=== PATIENT | female | born 1980 | race Caucasian/White ===

== ENCOUNTER → 2017-04-28 10:38 | Outpatient (CLI) | payer BC, SELFPAY ==
[2017-04-28 15:18] LABS: Group B Strep DNA By PCR Negative (Negative); Internal Control PASS; Probe Check PASS; Specimen Processing Control PASS
== END ==
PROVIDERS: Visit Provider Obstetrics & Gynecology
DX: Z36.85 Encounter for antenatal screening for Streptococcus B (principal)
CPT/HCPCS: 87081; 87653

== ENCOUNTER → 2017-05-08 10:58 | Outpatient (CLI) | payer BC, SELFPAY ==
[2017-05-08 11:28] LABS: Prothrombin Time (Protime)PT. 12.7 SECONDS (11.7-14.9)
[2017-05-08 11:29] LABS: Partial Thromboplast Time 26.2 Seconds (24.1-36.2)
[2017-05-08 11:33] LABS: Hematocrit 34.3 % (37-47); Hemoglobin 11.5 g/dl (12.0-15.0); Mean Corp Hgb Conc 33.5 g/gl (32-36); Mean Corpuscular Hgb 29.9 pg (27.0-32.0); Mean Corpuscular Volume 89.3 fL (81-99); Mean Platelet Vol. 10.1 fl (6.2-12.0); Platelet Count 305 K/mm3 (150-450); RBC Distribution Width CV 13.2 % (11.6-14.6); RBC Distribution Width SD 42.6 fl (35.1-43.9); Red Blood Count 3.84 M/mm3 (4.2-5.4); White Blood Count 10.6 K/mm3 (4.4-11.0)
[2017-05-08 11:35] LABS: Scan Indicated on CBC? Y/N NO
[2017-05-08 11:53] LABS: AST(SGOT) 12 U/L (15-37); Alanine Aminotransfer ALT/SGPT 15 U/L (13-56); Creatinine, Serum 0.56 mg/dL (0.55-1.02); EST Glomerular Filtration Rate 130 mL/min (>60); Est Glom Filt Rate - Afr Amer 157 mL/min (>60); Uric Acid 5.3 mg/dL (2.6-6.0)
== END ==
PROVIDERS: Visit Provider Obstetrics & Gynecology
DX: O13.1 Gestational [pregnancy-induced] hypertension without significant proteinuria, first trimester (principal); Z3A.00 Weeks of gestation of pregnancy not specified
CPT/HCPCS: 36415; 82565; 84450; 84460; 84550; 85027; 85610; 85730

== ENCOUNTER → 2017-05-09 12:59 | Outpatient (CLI) | payer BC, SELFPAY ==
[2017-05-09 14:11] LABS: 24HR. UA Prot. Total Volume 900 mL; Urine Protein (24 Hour) 32.3 mg/dL (<11.9)
[2017-05-09 14:12] LABS: 24 Hour Urine Protein 290.7 mg/24HR (<150 MG/24HR)
== END ==
PROVIDERS: Visit Provider Obstetrics & Gynecology
DX: O13.1 Gestational [pregnancy-induced] hypertension without significant proteinuria, first trimester (principal); Z3A.00 Weeks of gestation of pregnancy not specified
CPT/HCPCS: 84156

== ENCOUNTER 2017-05-12 06:58 | Inpatient (IN) | payer BC, SELFPAY ==
[2017-05-12 07:12] VITALS: BMI 47.9
[2017-05-12] MEDS: Lactated Ringers 1,000 ML 50 ML IV (07:30)
[2017-05-12] MEDS: miSOPROStol 25 MCG TABLET VAGINAL ×5 (08:00→23:52)
[2017-05-12 08:03] LABS: Hematocrit 33.2 % (37-47); Mean Corp Hgb Conc 33.1 g/gl (32-36); Mean Corpuscular Hgb 29.4 pg (27.0-32.0); Mean Corpuscular Volume 88.8 fL (81-99); Mean Platelet Vol. 10.1 fl (6.2-12.0); Platelet Count 273 K/mm3 (150-450); RBC Distribution Width CV 13.4 % (11.6-14.6); RBC Distribution Width SD 43.4 fl (35.1-43.9); Red Blood Count 3.74 M/mm3 (4.2-5.4); Scan Indicated on CBC? Y/N NO; White Blood Count 12.1 K/mm3 (4.4-11.0)
[2017-05-12] MEDS: Insulin NPH Human 100 UNITS/ML PEN 40 UNITS SC (09:14)
[2017-05-12 11:37] LABS: Bedside Glucose 85 mg/dL (70-110)
[2017-05-12 11:46] LABS: Bedside Glucose 158 mg/dL (70-110)
[2017-05-12 16:31] LABS: Bedside Glucose 119 mg/dL (70-110)
--- NOTE | 2017-05-12 17:07 | PCM.PN.OB ---
Subjective: Admitted for induction of labor secondary to GDMA2. Comfortable Objective: Afeb VSS. FHR tracing cat 1 - Physical Exam General: Alert, Oriented x3, Cooperative, No apparent distress Lungs: Clear to auscultation, Normal air movement Cardiovascular: Regular rate, Regular Rhythm Abdomen: Soft, Non Tender, Gravid, Appropriate for Gestational Age Extremities: Edema Skin: No rashes Neurological: Neuro grossly intact Psych/Mental Status: Normal Affect Comment: CE closed thick/high Weight: 271 lb Body Mass Index (BMI) 47.9 Laboratory Tests Past 24 Hrs 05/12/17 05/12/17 07:30 07:30 WBC 12.1 H RBC 3.74 L Hgb 11.0 L Hct 33.2 L MCV 88.8 MCH 29.4 MCHC 33.1 RDW 13.4 RDW Differential 43.4 Plt Count 273 MPV 10.1 Blood Type O POSITIVE Antibody Screen NEGATIVE POC Glucose 05/12/17 05/12/17 05/12/17 16:22 11:34 08:29 POC Glucose 119 H 158 H 85 Assessment/Plan Has had two doses of cytotec at this point. No change in cervical exam. Will continue cytotec q 4 hours for up to 6 doses.
[2017-05-12] MEDS: 0.9% Saline Lock 10 ML Syringe IV ×2 (19:04→22:47)
[2017-05-12 20:51] LABS: Bedside Glucose 120 mg/dL (70-110)
[2017-05-12] MEDS: Acetaminophen 325 MG Tablet PO (20:55)
[2017-05-12] MEDS: Insulin NPH Human 100 UNITS/ML PEN 26 UNITS SC (22:38)
[2017-05-12 22:40] LABS: Bedside Glucose 96 mg/dL (70-110)
[2017-05-12] MEDS: Nalbuphine 10 MG/ML Ampul IV (22:46)
[2017-05-13] VITALS (24 sets, daily range): BP systolic 95–133; BP diastolic 56–76; PULSE 71–102; RESP 16–20; TEMP 36.2–36.9; O2SAT 94–99
[2017-05-13] MEDS: 0.9% Saline Lock 10 ML Syringe IV (02:07)
[2017-05-13] MEDS: Nalbuphine 10 MG/ML Ampul IV (02:07)
[2017-05-13 02:21] LABS: Bedside Glucose 83 mg/dL (70-110)
[2017-05-13] MEDS: miSOPROStol 25 MCG TABLET VAGINAL (03:54)
[2017-05-13] MEDS: Ondansetron 4 MG/2 ML Vial IV (04:40)
[2017-05-13 05:56] LABS: Bedside Glucose 80 mg/dL (70-110)
[2017-05-13] MEDS: Lactated Ringers 1,000 ML 50 ML IV (07:16)
[2017-05-13] MEDS: Oxytocin 30 units/NS 500 ml 30 UNITS/500 ML IV.SOLN 167 UNITS IV (08:30)
--- NOTE | 2017-05-13 09:04 | PCM.OB.CSR ---
- Problem List (1) Arrest of dilation, delivered, current hospitalization Status: Chronic (2) Gestational diabetes mellitus (GDM) affecting first Status: Chronic Delivery Classification: NOE Final GARTH: 05/20/17 Final GARTH Source: US <20 weeks Gestational age: 39 Weeks and 0 Days Indications for : Failed Induction Description of Procedure: Patient admitted per [facility] recommendation for induction of labor secondary to GDMA2 with elevated blood pressures. Cervix unfavorable. Given 6 doses of cytotec with no change in cervical exam. Primary C/S was performed without complication with delivery of a live male weighing 7lb4oz. head noted to be very high in the pelvis. Apgars were 8/9. Uterus, ovaries, and fallopian tubes normal. Amniotic fluid clear. Normal appearing placenta. Amniotic Membrane Rupture Type: Spontaneous Amniotic Fluid Description: Clear Placenta Disposition: [facility] Specimen(s) sent to pathology: cord blood Drain: Buckner to straight drain Fluids Replaced: 1500cc Cord Entanglement: None Cord Vessel Description: 3 Vessels Esitmated Blood Loss (ml): 500 Gender: Male (1 minute): 8 (5 minute): 9 Delayed cord clamping: Yes Pre-op Antibiotic Given: Ancef 2 grams IV x1 Pt instructed on risks of surgery: Bleeding, Infection, Injury to surrounding structure(s) including bowel and bladder Complications: None - Admit VTE Documentation VTE Present on Admission: No VTE Mechan Device Prophylaxis: SCD's VTE Pharm Prophylaxis ordered?: No
--- NOTE | 2017-05-13 09:09 | OP.PCM_ITS ---
- Problem List (1) Arrest of dilation, delivered, current hospitalization Status: Chronic (2) Gestational diabetes mellitus (GDM) affecting first Status: Chronic Delivery Classification: NOE Final GARTH: 05/20/17 Final GARTH Source: US <20 weeks Gestational age: 39 Weeks and 0 Days Indications for : Failed Induction Description of Procedure: Patient admitted per [facility] recommendation for induction of labor secondary to GDMA2 with elevated blood pressures. Cervix unfavorable. Given 6 doses of cytotec with no change in cervical exam. Primary C/S was performed without complication with delivery of a live male weighing 7lb4oz. head noted to be very high in the pelvis. Apgars were 8/9. Uterus, ovaries, and fallopian tubes normal. Amniotic fluid clear. Normal appearing placenta. Amniotic Membrane Rupture Type: Spontaneous Amniotic Fluid Description: Clear Placenta Disposition: [facility] Specimen(s) sent to pathology: cord blood Drain: Buckner to straight drain Fluids Replaced: 1500cc Cord Entanglement: None Cord Vessel Description: 3 Vessels Esitmated Blood Loss (ml): 500 Gender: Male (1 minute): 8 (5 minute): 9 Delayed cord clamping: Yes Pre-op Antibiotic Given: Ancef 2 grams IV x1 Pt instructed on risks of surgery: Bleeding, Infection, Injury to surrounding structure(s) including bowel and bladder Complications: None - Admit VTE Documentation VTE Present on Admission: No VTE Mechan Device Prophylaxis: SCD's VTE Pharm Prophylaxis ordered?: No
--- NOTE | 2017-05-13 09:10 | DCINST_ITS ---
Discharge Diet: No Restrictions Discharge Activity: Return to Normal Activity, May Not Drive, May not drive while taking narcotic pain medications., May Shower Return to work on:: 07/10/17 May shower in (days): 0 May resume sexual activity in: 4-6 weeks Call your doctor if your incision/area has: Sudden Increased Bleeding, Increased Pain/ Swelling, Increased Redness, Foul Smelling Discharge, Swelling at the incision site Call your doctor if you observe: Fever of 101 or Higher, Inability to urinate, Inability to have a bowel movement, Using more than one pad per hour, Shortness of breath, Chest pain, Calf discomfort, Uncontrolled pain Remove Dressing in (days):: 2 Cleanse incision/area with: Soap & Water Additional Instructions: If you experience any of the following, contact your healthcare provider. * Bleeding that soaks a pad every hour for 2 hours * Fever 100.4 or higher * Unrelieved incision or abdominal pain * Swelling, redness, discharge or bleeding from your incision or episiotomy site * Your incision begins to separate * Problems urinating (including inability to urinate or burning while urinating) . * Visual changes * Severe headache * Flu-like symptoms * Pain or redness in one of both of your breasts * Pain, warmth, tenderness or swelling in your legs, especially the calf area * Frequent nausea and vomiting * Symptoms of depression or anxiety If you experience any of the following, call 911 or go to the nearest Emergency Room. * Chest pain * Problems breathing * Seizure activity * Partial or complete paralysis of a body part, slurred speech, weakness or drooping of the face, or a sudden inability to walk or hold your balance Allergies/Adverse Reactions: Allergies folic acid Allergy (Verified 05/12/17 07:54) Hives bupropion [From Wellbutrin] Adverse Reaction (Verified 05/12/17 07:54) Other hydrocodone [From Vicodin] Adverse Reaction (Verified 05/12/17 07:54) Nausea Medications to take at Discharge DiphenhydrAMINE [Benadryl] 05/12/17 Diphenhydramine HCl [Unisom] 05/12/17 Humalog BID 05/12/17 Insulin Detemir BID 05/12/17 Insulin NPH Human [Humulin N Pen] 05/12/17 Multi Tablet 05/12/17 Ranitidine [Zantac] 05/12/17 Tylenol 05/12/17 Ibuprofen [Motrin] 800 mg PO TID PRN PRN #30 tab 05/13/17 Oxycodone [Oxyir] 5 mg PO Q4H PRN PRN 7 Days #28 tab 05/13/17 The following prescriptions were given: Oxycodone [Oxyir] 5 mg PO Q4H PRN PRN 7 Days #28 tab PRN Reason: Pain Ibuprofen [Motrin] 800 mg PO TID PRN PRN #30 tab PRN Reason: pain or cramping Follow-Up: Call to make an appointment with your doctor for an incision check in 1-2 weeks. You will also need a 6 week post- follow up appointment. Please Follow Up With: David Hooper MD When: one week Primary Care Physician: Care Physician,No Primary [Primary Care Provider] - Proposed Discharge Date: 05/22/17
[2017-05-13 11:36] LABS: Bedside Glucose 102 mg/dL (70-110)
[2017-05-13] MEDS: Lactated Ringers 1,000 ML 100 ML IV ×2 (14:00→22:52)
[2017-05-13] MEDS: Ketorolac 30 MG/ML Syringe IV ×2 (14:20→20:16)
--- NOTE | 2017-05-13 15:05 | PCM.OPRPT ---
Problem List (1) Arrest of dilation, delivered, current hospitalization Status: Chronic (2) Gestational diabetes mellitus (GDM) affecting first Status: Chronic Report of Operation Date of Procedure: 05/13/17 Pre-Operative Diagnosis: Failed induction, GDMA2, Hypertension Post-Operative Diagnosis: Same Surgery/Procedure Performed:: Primary Low Transverse Section Description of Surgical Findings:: Normal appearing uterus, ovaries, and fallopian tubes. Live male in vertex presentation. Head not engaged. weight [id number] Apgars 8/9 Amniotic fluid clear. Placenta grossly normal. service unit operator oil well: Shawn Hood Type of Anesthesia:: Spinal Anesthesiologist: Maico Rodriguez Specimen's removed: cord blood Drains: palomino Estimated Blood Loss (mL): 500 Fluids Replaced: 1500cc Description of Procedure: Indications, risks, and postoperative expectations discussed with Alesia prior to the procedure. Indication was failed induction of labor with no cervical change despite 3 doses of cytotec given vaginally over 24 hours. Cervix was not dilated to point that a palomino bulb cervical ripening could have been done. She was taken to the OR with IV running. She was given two grams of Ancef intravenously for surgical prophylaxis. Spinal anesthesia was then introduced without complication. She was then preeped and draped in the supine position with a leftward tilt. A palomino catheter was placed. Anesthesia was checked and found to be adequate. A Pfannensteil incision was made approximately 2 cm above the symphysis pubis. The underlying subcutaneous tissue was dissected down to the level of fascia using blunt and sharp dissection. The fascia was then incised in the midline and this incision was extended bilaterally with the Raphael scissors. The upper portion of the fascial defect was then grasped with two Curly clamps, elevated and the underlying rectus muscles were dissected off with blunt and sharp dissection. In a similar fashion the fascia was dissected off the lower rectus muscles. The rectus muscles were then in the midline. The peritoneum was identified and entered bluntly. The peritoneal defect was then extended using blunt retraction. A bladder blade was placed. The vesicouterine peritoneum was then entered and a bladder flap was created using blunt and sharp dissection. The bladder blade was then replaced. The lower uterine segment was then incised. Once the uterus was entered the uterine defect was extended using blunt lateral and superior traction. The membranes were ruptured with clear fluid noted. The baby's head was then delivered atraumatically followed by the body. The mouth and nares were then suctioned with a bulb suction. Delayed cord clamping was employed. The cord was then clamped and cut. The baby was then handed off to the waiting nursing staff for evaluation. The placenta was then delivered manually. The uterus was exteriorized and cleared of all clot and membranes. The uterine defect was then closed in two layers with #1 Vicryl in two layers. Hemostasis was excellent. The posterior cul de sac and gutters were cleared of all clot and fluid. The uterus was then returned to the abdomen. The uterine incision was reinspected and found to be hemostatic. The peritoneum was closed with 2-0 Vicryl. The rectus muscles were reapproximated using interrupted sutures of 0-Vicryl. The fascia was closed with a running stitch of #1 Stratofix suture. The subcutaneous tissue was closed with 2-0 Vicryl. The skin was closed in a subcuticular fashion with 4-0 Monocryl. Sponge, lap, and needle counts were correct. Alesia was taken to the recovery room in stable condition. - Complications none - Admit VTE Documentation VTE Present on Admission: No VTE Mechan Device Prophylaxis: SCD's VTE Pharm Prophylaxis ordered?: No
--- NOTE | 2017-05-13 15:08 | OP.PCM_ITS ---
Problem List (1) Arrest of dilation, delivered, current hospitalization Status: Chronic (2) Gestational diabetes mellitus (GDM) affecting first Status: Chronic Report of Operation Date of Procedure: 05/13/17 Pre-Operative Diagnosis: Failed induction, GDMA2, Hypertension Post-Operative Diagnosis: Same Surgery/Procedure Performed:: Primary Low Transverse Section Description of Surgical Findings:: Normal appearing uterus, ovaries, and fallopian tubes. Live male in vertex presentation. Head not engaged. weight [id number] Apgars 8/9 Amniotic fluid clear. Placenta grossly normal. director client services: Shawn Hood Type of Anesthesia:: Spinal Anesthesiologist: Maico Rodriguez Specimen's removed: cord blood Drains: palomino Estimated Blood Loss (mL): 500 Fluids Replaced: 1500cc Description of Procedure: Indications, risks, and postoperative expectations discussed with Alesia prior to the procedure. Indication was failed induction of labor with no cervical change despite 3 doses of cytotec given vaginally over 24 hours. Cervix was not dilated to point that a palomino bulb cervical ripening could have been done. She was taken to the OR with IV running. She was given two grams of Ancef intravenously for surgical prophylaxis. Spinal anesthesia was then introduced without complication. She was then preeped and draped in the supine position with a leftward tilt. A palomino catheter was placed. Anesthesia was checked and found to be adequate. A Pfannensteil incision was made approximately 2 cm above the symphysis pubis. The underlying subcutaneous tissue was dissected down to the level of fascia using blunt and sharp dissection. The fascia was then incised in the midline and this incision was extended bilaterally with the Raphael scissors. The upper portion of the fascial defect was then grasped with two Curly clamps, elevated and the underlying rectus muscles were dissected off with blunt and sharp dissection. In a similar fashion the fascia was dissected off the lower rectus muscles. The rectus muscles were then in the midline. The peritoneum was identified and entered bluntly. The peritoneal defect was then extended using blunt retraction. A bladder blade was placed. The vesicouterine peritoneum was then entered and a bladder flap was created using blunt and sharp dissection. The bladder blade was then replaced. The lower uterine segment was then incised. Once the uterus was entered the uterine defect was extended using blunt lateral and superior traction. The membranes were ruptured with clear fluid noted. The baby's head was then delivered atraumatically followed by the body. The mouth and nares were then suctioned with a bulb suction. Delayed cord clamping was employed. The cord was then clamped and cut. The baby was then handed off to the waiting nursing staff for evaluation. The placenta was then delivered manually. The uterus was exteriorized and cleared of all clot and membranes. The uterine defect was then closed in two layers with #1 Vicryl in two layers. Hemostasis was excellent. The posterior cul de sac and gutters were cleared of all clot and fluid. The uterus was then returned to the abdomen. The uterine incision was reinspected and found to be hemostatic. The peritoneum was closed with 2-0 Vicryl. The rectus muscles were reapproximated using interrupted sutures of 0- Vicryl. The fascia was closed with a running stitch of #1 Stratofix suture. The subcutaneous tissue was closed with 2-0 Vicryl. The skin was closed in a subcuticular fashion with 4-0 Monocryl. Sponge, lap, and needle counts were correct. Alesia was taken to the recovery room in stable condition. - Complications none - Admit VTE Documentation VTE Present on Admission: No VTE Mechan Device Prophylaxis: SCD's VTE Pharm Prophylaxis ordered?: No
[2017-05-13] MEDS: Cefazolin 1 GM/50 ML BAG IV ×2 (16:13→23:30)
[2017-05-13] MEDS: Acetaminophen 500 MG Tablet 1000 MG PO (22:52)
[2017-05-14] VITALS (7 sets, daily range): BP systolic 125–144; BP diastolic 70–83; PULSE 72–104; RESP 16–18; TEMP 36.3–37.3; O2SAT 95–98
[2017-05-14] MEDS: Ketorolac 30 MG/ML Syringe IV ×2 (02:12→08:24)
[2017-05-14 05:21] LABS: Bedside Glucose 106 mg/dL (70-110)
[2017-05-14 05:26] LABS: Hematocrit 31.6 % (37-47); Hemoglobin 10.3 g/dl (12.0-15.0); Mean Corp Hgb Conc 32.6 g/gl (32-36); Mean Corpuscular Hgb 29.3 pg (27.0-32.0); Mean Platelet Vol. 9.5 fl (6.2-12.0); Platelet Count 200 K/mm3 (150-450); RBC Distribution Width CV 13.8 % (11.6-14.6); RBC Distribution Width SD 45.4 fl (35.1-43.9); Red Blood Count 3.51 M/mm3 (4.2-5.4); White Blood Count 10.5 K/mm3 (4.4-11.0)
[2017-05-14 05:29] LABS: Scan Indicated on CBC? Y/N NO
[2017-05-14] MEDS: 0.9% Saline Lock 10 ML Syringe IV (08:24)
--- NOTE | 2017-05-14 09:48 | PCM.PN.OB ---
Subjective: Sitting in chair. Pain reasonably controlled. Buckner removed. Tolerating PO. Objective: Afeb VSS Hgb stable. Urine output adequate, - Physical Exam General: Alert, Oriented x3, Cooperative, No apparent distress Lungs: Clear to auscultation, Normal air movement Cardiovascular: Regular rate, Regular Rhythm Abdomen: Soft, Non Tender, Non-Distended, - - Incision dressing dry. No erythema. Extremities: No edema Skin: No rashes Neurological: Neuro grossly intact Psych/Mental Status: Normal Affect Comment: Lochia scant. Vital Signs Temp Pulse Resp BP Pulse Ox 97.8 F 89 18 138/70 H 98 05/14/17 05:00 05/14/17 05:00 05/14/17 05:00 05/14/17 05:00 05/14/17 07:00 Oxygen Delivery Method Room Air Weight: 271 lb Body Mass Index (BMI) 47.9 Intake and Output for Last 24 Hours 05/12/17 05/13/17 05/14/17 23:59 23:59 23:59 Intake Total 1065 / 1065 1245 / 1245 Output Total 1050 / 1050 900 / 900 Balance 345 / 345 Laboratory Tests Past 24 Hrs 05/14/17 05:17 WBC 10.5 RBC 3.51 L Hgb 10.3 L Hct 31.6 L MCV 90.0 MCH 29.3 MCHC 32.6 RDW 13.8 RDW Differential 45.4 H Plt Count 200 MPV 9.5 POC Glucose 05/14/17 05/13/17 05:16 11:26 POC Glucose 106 102 Assessment/Plan Doing well on POD#1. Continue routine PO care.
[2017-05-14] MEDS: oxyCODONE 5 MG Tablet PO ×3 (10:48→22:38)
[2017-05-14] MEDS: Senna/Docusate Sodium 1 Tablet PO ×2 (10:49→22:37)
[2017-05-14] MEDS: Ibuprofen 600 MG Tablet PO ×2 (13:08→18:43)
[2017-05-15 01:00] VITALS: BP 144/87; PULSE 117; RESP 16; TEMP 36.4
[2017-05-15] MEDS: oxyCODONE 5 MG Tablet PO ×2 (05:59→14:54)
--- NOTE | 2017-05-15 07:40 | PCM.PN.OB ---
Subjective: Some soreness today. Passed one clot overnight. Breast feeding. Objective: Afeb VSS - Physical Exam General: Alert, Oriented x3, Cooperative, No apparent distress Lungs: Clear to auscultation, Normal air movement Cardiovascular: Regular rate, Regular Rhythm Abdomen: Soft, Non Tender, Non-Distended, - - Incision dressing dry no erythema Extremities: No edema Skin: No rashes Neurological: Neuro grossly intact Psych/Mental Status: Normal Affect Comment: Lochia light Vital Signs Temp Pulse Resp BP Pulse Ox 97.6 F L 117 H 16 144/87 H 96 05/15/17 01:00 05/15/17 01:00 05/15/17 01:00 05/15/17 01:00 05/14/17 08:00 Oxygen Delivery Method Room Air Weight: 271 lb Body Mass Index (BMI) 47.9 Intake and Output for Last 24 Hours 05/13/17 05/14/17 05/15/17 23:59 23:59 23:59 Intake Total 1065 / 1065 1245 / 1245 Output Total 1050 / 1050 1999 300 / 300 Balance 15 / -755 / -755 -300 / -300 Assessment/Plan Doing well except for incisional soreness today. Continue breast feeding. Continue routine PO care. May discharge later this evening or hold discharge until tomorrow. Home going instructions and warnigns given.
[2017-05-15 07:48] VITALS: BP 128/60; PULSE 100; RESP 14; TEMP 36.9
[2017-05-15] MEDS: Ibuprofen 600 MG Tablet PO (10:07)
[2017-05-15 11:27] VITALS: BP 119/65; PULSE 108; RESP 14; TEMP 36.8
--- NOTE | 2017-05-15 13:00 | NURSING ---
This nursing attendant reviewed the charting completed by Joshua Christian, student nurse.
[2017-05-15 14:26] VITALS: BP 116/60; PULSE 100; RESP 16; TEMP 36.8
--- NOTE | 2017-05-15 16:05 | CASEMGMT ---
Social Work Referral Date:05/15/17 Date of Assessment:05/15/17 Reason for Consult:Community Resources Informant: Mother of baby (MOB) and chart. Personal Status Mentation: (A&Ox3?): MOB oriented x3. Present during assessment: MOB and infant Hx : 1 Hx Para: 0 Infant Gender: Male Name: Ramon Bhatt (1min): 8 (5min): 9 Care: Adequate Alleged father: Laci Bhatt Alleged father involved: father of baby (FOB) recently moved to [place] until summer due to a job. Length of Relationship with alleged father of baby: 1.5 years. Number of Children in the home: This is first for MOB and FOB. Custody Comments: MOB plans to discharge home with . Living Arrangements: MOB and FOB have own private apartment where infant plans to discharge home to. Education: Collage degree. 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 MOB reporting that FOB is a Pick Pulling Machine Operator and is trying to grow profession and the job in [place] would help with this. MOB appearing to be a peace with the fact that FOB would not be returning until summer time. Supports: MOB reporting to have a positive support system that is able to be present with MOB. MOB reporting that maternal grandmother and MOB's sisters are able to assist. Substance Abuse Hx and Current Pattern of Use Comment: MOB denies any Alcohol use during . MOB denies any usage of Methamphetamine, Cocaine, Marijuana, Prescriptions Drugs, or Heroin. MOB reporting to have smoked tobacco prior to discovering but to have not smoked since discovering . MOB with no tox screen orders during . No tox screens order for . MOB educated and aware of risk of second hand smoke and the value of not returning back to smoking tobacco, MOB voicing understanding. This socia worker also recognizing with MOB and smoking tobacco was how MOB relieved stress. MOB reporting to be able to look into other healthy stress relief options. MOB reporting that is motivation for MOB to not return go smoking. This social science research assistant presenting stress relief options such as reading, music, exercise, and journaling. Support given. Mental Health Hx and Current Status Comment: MOB denies any history of depression or anxiety. MOB reporting to have no history of mental health. Items/Skills List for Infants Care Supplies: MOB reporting to have a crib, car seat, clothing, bottles, breast pump, diapers, wipes. Bonding With Infant: MOB reporting to be bonding with . MOB reporting that was planned. Observed Maternal/Paternal Child interaction: MOB holding during interview. MOB beginning to breastfeed infant during assessment. MOB supporting infants body and head appropriately. MOB soothing as well as finger tipping often during assessment. Emotional Assessment: MOB presenting with a normal affect as could be seen through smiling as this social science research assistant and making eye contact with this social science research assistant often during assessment. MOB engaged in assessment as seen through eye contact and initiating questions. Resources JFS: Not involved at this time. WIC: MOB does not qualify People to People: No Community Action: MOB planning to contact to look into possible options for day care. - Information given. Help Me Grow: MOB not interested in referral at this time - information given. Children Protective Services Hx: None Transportation: MOB denies any concerns. Comments: MOB given information as well as educated on [facility] resources, Help Me Grow, Safe sleeping, depression. Intervention: None at this time. Plan: to discharge home with MOB and FOB to join in the summer and on return visits home. Florencia VAZQUEZ, BOILER WELDER
--- NOTE | 2017-05-15 21:09 | PCM.DC.SUM ---
Discharge Date and Diagnosis Date of Admission: 05/12/17 Date of Discharge: 05/15/17 - Secondary Discharge Diagnosis Chronic Problems Arrest of dilation, delivered, current hospitalization (Chronic) Gestational diabetes mellitus (GDM) affecting first (Chronic) Hospital Course and Treatment Consultations 05/12/17 07:13 Consult: Anesthesia Routine Comment: Reason For Exam: labor Operations: - - section Summary of Care Provided: The patient is a 37 year old F admitted at 38 6/7 weeks gestational age with with gestational diabetes and elevated blood pressures. She had a failed induction and underwent a primary low transverse section at 39 weeks gestational age. Her post-operative course was unremarkable and she was discharged to home on post-op day #2. Discharge Diet: No Restrictions Discharge Activity: Return to Normal Activity, May Not Drive, May not drive while taking narcotic pain medications., May Shower Return to work on:: 07/10/17 May shower in (days): 0 May resume sexual activity in: 4-6 weeks Call your doctor if your incision/area has: Sudden Increased Bleeding, Increased Pain/ Swelling, Increased Redness, Foul Smelling Discharge, Swelling at the incision site Call your doctor if you observe: Fever of 101 or Higher, Inability to urinate, Inability to have a bowel movement, Using more than one pad per hour, Shortness of breath, Chest pain, Calf discomfort, Uncontrolled pain Remove Dressing in (days):: 2 Cleanse incision/area with: Soap & Water Home Medications: Medications to take at Discharge DiphenhydrAMINE [Benadryl] 05/12/17 Diphenhydramine HCl [Unisom] 05/12/17 Humalog BID 05/12/17 Insulin Detemir BID 05/12/17 Insulin NPH Human [Humulin N Pen] 05/12/17 Multi Tablet 05/12/17 Ranitidine [Zantac] 05/12/17 Tylenol 05/12/17 Ibuprofen [Motrin] 800 mg PO TID PRN PRN #30 tab 05/13/17 Oxycodone [Oxyir] 5 mg PO Q4H PRN PRN 7 Days #28 tab 05/13/17 Following Prescrptions Were Given to Patient: Oxycodone [Oxyir] 5 mg PO Q4H PRN PRN 7 Days #28 tab PRN Reason: Pain Ibuprofen [Motrin] 800 mg PO TID PRN PRN #30 tab PRN Reason: pain or cramping Primary Care Physician: Care Physician,No Primary [Primary Care Provider] - Please Follow Up With: David Hooper MD When: one week Meaningful Use Info Meaningful Use Diagnoses (Choose all that apply): None applicable
--- NOTE | 2017-05-15 21:33 | NURSING ---
Late entry: Verbal and written discharge instructions for infant given to mother. This RN and Parul RN spoke with mother regarding 's weight loss and that Dr. Chavez would like patient to give formula after putting infant to breast, mother verbalized understanding. Also encouraged that patient pump after each feed and that Dr. Chavez would like infant to be seen tomorrow or instead of Monday appointment, patient verbalizes understanding. This RN encouraged mother to make a consult appointment, but mother declined and states she will call back in if she decides that is what she wants to do. Mother and infant discharged at 2004, in carseat on mother's lap and both discharged from via wheelchair.
== END 2017-05-15 20:05 | disposition home or self-care (01) | DRG 766 ==
PROVIDERS: Obstetrics & Gynecology; Admitting Provider Obstetrics & Gynecology; Visit Provider Obstetrics & Gynecology
DX: O24.424 Gestational diabetes mellitus in childbirth, insulin controlled (principal); O09.513 Supervision of elderly primigravida, third trimester; O13.4 Gestational [pregnancy-induced] hypertension without significant proteinuria, complicating childbirth; O61.0 Failed medical induction of labor; Z3A.39 39 weeks gestation of pregnancy; Z37.0 Single live birth; Z87.891 Personal history of nicotine dependence
CPT/HCPCS: 59050; 82962; 85027; 86850; 86900; 99218; J7120; A4216; G0378; J2405

== ENCOUNTER 2017-05-18 13:00 | Outpatient (CLI) | payer BC, SELFPAY | END 2017-05-18 14:15 | disposition home or self-care (01) | LOC: WPOUT 13:08 → WP 13:08 | PROVIDERS: Visit Provider Obstetrics & Gynecology | DX: O92.79 Other disorders of lactation (principal) | CPT/HCPCS: 96152 ==

== ENCOUNTER → 2018-10-18 | Outpatient (CLI) | payer MEDICAID, SELFPAY ==
[2018-10-25 15:25] LABS: HPV Reflexed? NOT INDICATED
== END | disposition home or self-care (01) ==
LOC: LABSPEC 15:30
PROVIDERS: Visit Provider Obstetrics & Gynecology
DX: Z12.4 Encounter for screening for malignant neoplasm of cervix (principal)
CPT/HCPCS: 87624; 88175; G0145

== ENCOUNTER → 2020-08-07 11:37 | Outpatient (CLI) | payer BC, MEDICAID, SELFPAY ==
[2020-08-11 18:53] LABS: HPV Reflexed? NOT INDICATED
== END ==
PROVIDERS: Visit Provider Obstetrics & Gynecology
DX: Z12.4 Encounter for screening for malignant neoplasm of cervix (principal)
CPT/HCPCS: 88175; G0145